=== PATIENT | male | born 1980 | race African-American/Black ===

== ENCOUNTER 2016-12-01 21:47 | Emergency (ER) | payer OTHER ==
[2016-12-01 21:49] VITALS: TEMP 36.8; Ht 167.6 cm
[2016-12-01] MEDS ORDERED: SODIUM CHLORIDE 0.9% 1000ML 1,000 ML IV STA ×2 (22:06)
[2016-12-01] MEDS ORDERED: CYAN10005 PO (22:22)
[2016-12-01] MEDS ORDERED: CLR10 PO (22:22)
[2016-12-01] MEDS ORDERED: CALC200T PO (22:22)
[2016-12-01] MEDS ORDERED: ACET-1256 PO (22:22)
[2016-12-01] MEDS ORDERED: PRLSR20 PO (22:22)
[2016-12-01] MEDS ORDERED: VNTHFA/IN INH (22:22)
[2016-12-01 22:23] VITALS: O2SAT 95
[2016-12-01 22:30] LABS: BASO % 0.2 %; BASO ABS # 0.03 K/uL (0-0.2); COMPLETE YES; EOS % 0.1 %; HEMATOCRIT 42.5 % (42-52); IG% 0.4 %; LYMPH ABS # 2.47 K/uL (1.2-3.4); MEAN CELL VOLUME 88.5 fL (80-100); MEAN CORPUSCULAR HEMOGLOBIN 29.6 pg (25-34); MEAN CORPUSCULAR HGB CONC 33.4 g/dl (32-36); MEAN PLATELET VOLUME 9.6 fL (7.4-10.4); MONO % 6.4 %; NEUT % 74.9 %; PLATELET COUNT 260 K/uL (130-400); WHITE BLOOD COUNT 13.75 K/uL (4.8-10.8)
[2016-12-01 22:43] LABS: ALT/SGPT 33 U/L (12-78); BLOOD UREA NITROGEN 11 mg/dl (7-18); BUN/CREATININE RATIO 7.6 (10-20); CALCIUM 9.4 mg/dl (8.5-10.1); CARBON DIOXIDE 24 mmol/L (21-32); CHLORIDE 106 mmol/L (98-107); GLUCOSE 89 mg/dl (70-99); SODIUM 141 mmol/L (136-145)
[2016-12-01] MEDS ORDERED: PANTOprazole INJ 80 MG in DEXTROSE 5% 100ML IV SCH (22:45)
[2016-12-01 22:46] LABS: ALKALINE PHOSPHATASE 137 U/L (45-117); AST/SGOT 23 U/L (15-37)
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
[2016-12-01] MEDS ORDERED: PANTOprazole INJ 40 MG in DEXTROSE 5% 100ML IV SCH (23:00)
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
[2016-12-01] MEDS ORDERED: ACETAMINOPHEN 500 MG TAB PO STA (23:24)
[2016-12-01] MEDS ORDERED: PANT40TA PO (23:28)
[2016-12-01 23:33] VITALS: BP 149/87; PULSE 83; O2SAT 99
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
== END 2016-12-01 23:41 | disposition home or self-care (01) ==
LOC: C.EDB 21:48 → C.EDA 23:41
DX: S09.90XA Unspecified injury of head, initial encounter (principal); S20.90XA Unspecified superficial injury of unspecified parts of thorax, initial encounter; S39.91XA Unspecified injury of abdomen, initial encounter; Y04.0XXA Assault by unarmed brawl or fight, initial encounter; Y92.149 Unspecified place in prison as the place of occurrence of the external cause; F17.200 Nicotine dependence, unspecified, uncomplicated